=== PATIENT | female | born 1955 | race Caucasian/White ===

== ENCOUNTER 2017-09-21 20:17 | Emergency (ER) | payer BC ==
[~2017-09-21] VITALS: Ht 172.7 cm; Wt 85.7 kg
[~2017-09-21 20:17] MED LIST: LOVASTATIN20 MG PO; MOTRIN IB200 MG PO; NORCO 5-325 TA1 EACH PO
[2017-09-21] MEDS ORDERED: METFORMIN HCL500 MG PO (20:47)
[2017-09-21] MEDS ORDERED: TRAZODONE HCL50 MG PO (20:48)
[2017-09-21] MEDS ORDERED: TRAMADOL HCL50 MG PO (21:53)
[2017-09-21] MEDS ORDERED: PENICILLIN V P500 MG PO (21:53)
== END 2017-09-21 22:00 | disposition home or self-care (01) ==
LOC: ED 20:17
DX: K08.89 Other specified disorders of teeth and supporting structures (principal); E11.9 Type 2 diabetes mellitus without complications; E78.00 Pure hypercholesterolemia, unspecified; Z90.49 Acquired absence of other specified parts of digestive tract; Z79.84 Long term (current) use of oral hypoglycemic drugs; Z98.818 Other dental procedure status; Z88.5 Allergy status to narcotic agent; Z79.899 Other long term (current) drug therapy
CPT/HCPCS: 99283

== ENCOUNTER 2023-10-14 08:33 | Day surgery (SDC) | payer MEDICARE, OTHER ==
[~2023-10-14] VITALS: Ht 172.7 cm; Wt 87.7 kg
[~2023-10-14 08:33] MED LIST changes: +ALEVE220 MG PO; +ATIVAN0.5 MG PO; +LOVASTATIN40 MG PO; +METFORMIN HCL500 MG PO; +MOBIC15 MG PO; +PENICILLIN V P500 MG PO; +TRAMADOL HCL50 MG PO; +TRAZODONE HCL50 MG PO
[2023-10-14 09:00] VITALS: BP 126/61
--- NOTE | 2023-10-14 10:38 | NUR ---
10/14/23 Mary Jones 1030 PT TO PACU SLEEPING. O2 IN PLACE VIA NASAL CANNULA
[2023-10-14 11:28] VITALS: BP 149/83
--- NOTE | 2023-10-14 11:40 | OR ---
[facility] [address] [place], [place] [address] Signed DATE OF OPERATION: 10/14/2023 SURGEON: Alberto Shea MD PREOPERATIVE DIAGNOSES: 1. Rectal bleeding. 2. Internal and external hemorrhoids, greater than 40 years. 3. Diverticulosis. 4. Hyperplastic and adenomatous polyps. POSTOPERATIVE DIAGNOSES: 1. Ybbckyoj-vb-sdcri circumferential external hemorrhoids. 2. Moderate beefy internal hemorrhoids with associated skin tags. 3. No visible diverticulosis. PROCEDURE: Colonoscopy without biopsy. ESTIMATED BLOOD LOSS: None. INDICATIONS: Brigid is a 68-year-old obese diabetic female, asked to see me for followup colonoscopy. She has had chronic intermittent rectal bleeding associated with hemorrhoids for more than 40 years. She has history of anxiety and tells me that she always worried something worse is going on her colon. Really, she has no other lower GI complaints. There is no family history of colon cancer or polyps. She has good success with Anusol cream and fiber products. At one point, she was contemplating hemorrhoidectomy, but found out from friends it is very painful surgery. She said she is fine so long as there is no cancer. I helped her with the colonoscopy in 2007. She had internal and external hemorrhoids along with some small hyperplastic polyps. She came back in 2018, and she had mlczbmh-[id number] sigmoid diverticulosis, the moderate external hemorrhoids, minimal internal hemorrhoids and then several hyperplastic polyps. We took a biopsy from what looked like lymphoid tissue off the ileocecal valve. The pathologist felt it might be a tubular adenomatous polyp. Consequently, we did ask her to follow up in 5 years. In the office, I gave her a pamphlet on colonoscopy. She understands the nature of the test. There is risk including, but not limited to gas bloating, crampy abdominal pain, bleeding, perforation requiring surgery, and missed diagnosis. We also reviewed the written instructions for the bowel prep and she is very familiar with our instructions. She recalls the need for IV conscious sedation. She has always done well Electronically Signed By: ALBERTO SHEA MD 10/14/23 1140 PATIENT NAME: BRIGID SAMPSON OPERATIVE REPORT DATE OF : 53 REPORT #: [id number] PHYSICIAN: ALBERTO SHEA MD PCP: LESLIE PATTON MD REPORT IS CONFIDENTIAL AND NOT TO BE RELEASED WITHOUT AUTHORIZATION [facility] [address] [place] [id number] Signed with Versed and fentanyl despite her as needed use of lorazepam. DESCRIPTION OF PROCEDURE: Brigid was taken into our endoscopy suite and placed in the left lateral decubitus position. She was given IV sedation with 7 mg of Versed and 100 mcg of fentanyl. A digital rectal exam was performed and she does have rhzycdbe-db-uuwfe circumferential external hemorrhoids. She had good sphincter tone. There were no masses. I could feel an internal anal skin tag. The adult colonoscope was introduced and advanced around into the cecum under direct visualization of camera. It took just a little bit of abdominal compression with some additional sedation to get the camera right into the cecum itself. Her prep was good as always. I could easily see the appendiceal orifice and ileocecal valve. We looked at the ileocecal valve, were actually quite extensively. We did not see any lesions of concern. The scope was then slowly withdrawn. We took pictures throughout for photodocumentation. We did not specifically see diverticula on this occasion. There were no polyps. Once in the rectum, the scope was retroflexed. She does have moderate beefy internal hemorrhoids with associated skin tag. There is one hemorrhoid that is a little larger, I believe that is when it probably bleeds once in a while. She could always consider just an office based hemorrhoid banding if that becomes an issue. After this, the gas was suctioned out, colonoscope removed. Brigid tolerated the procedure quite well. RECOMMENDATIONS: Brigid can return in 5 years for repeat colonoscopy due to her history of adenomatous polyps. She does have one dominant internal hemorrhoid that may or may not be a minimal to office based banding if that becomes an issue with bleeding. Alberto Shea MD ALB/MODL /[id number] cc: Patient Chart MD Leslie Chisholm MD Electronically Signed By: ALBERTO SHEA MD 10/14/23 1140 PATIENT NAME: BRIGID SAMPSON OPERATIVE REPORT DATE OF : 53 REPORT #: [id number] PHYSICIAN: ALBERTO SHEA MD PCP: LESLIE PATTON MD REPORT IS CONFIDENTIAL AND NOT TO BE RELEASED WITHOUT AUTHORIZATION [address] [address] Signed Copies: ALBERTO SHEA MD, ROBERT D DMD ~ Electronically Signed By: ALBERTO SHEA MD 10/14/23 1140 PATIENT NAME: BRIGID SAMPSON OPERATIVE REPORT DATE OF : 53 REPORT #: [id number] PHYSICIAN: ALBERTO SHEA MD PCP: LESLIE PATTON MD REPORT IS CONFIDENTIAL AND NOT TO BE RELEASED WITHOUT AUTHORIZATION
== END 2023-10-14 11:35 | disposition home or self-care (01) ==
LOC: OPS 08:33 → DS 08:33 → OPS 11:35
PROVIDERS: ATTEND Colon & Rectal Surgery
PROC: 0DJD8ZZ Inspection of Lower Intestinal Tract, Via Natural or Artificial Opening Endoscopic (ICD-10-PCS; principal; 2023-10-14 09:45)
DX: K62.5 Hemorrhage of anus and rectum (principal); K64.8 Other hemorrhoids; K64.4 Residual hemorrhoidal skin tags; E66.9 Obesity, unspecified; E11.9 Type 2 diabetes mellitus without complications; E78.5 Hyperlipidemia, unspecified; M17.11 Unilateral primary osteoarthritis, right knee; M19.012 Primary osteoarthritis, left shoulder
CPT/HCPCS: J2250; J3010; J7121

== ENCOUNTER 2024-01-05 19:51 | Emergency (ER) | payer MEDICARE, OTHER ==
[~2024-01-05] VITALS: Ht 172.7 cm; Wt 86.6 kg
[2024-01-05 21:03] LABS: BASOPHILS 0.9 % (0-2); EOSINOPHILS 0.9 % (0-6); HEMATOCRIT 21.9 % (35.0-50.0); HEMOGLOBIN 6.6 g/dL (12.0-18.0); LYMPHOCYTES 28.5 % (24-44); MCH 17.3 (27-36); MCV 57.6 fl (81-99); MONOCYTES 10.6 % (0-12); NEUTROPHILS 59.1 % (39-80); PLATELET COUNT 297 K/uL (140-440); RBC 3.81 M/ul (4.3-5.7); RDW 18.4 (10.5-15.0)
[2024-01-05 21:19] LABS: INR 1.04 (0.80-1.30); PROTIME 12.9 Sec (11.2-14.2)
[2024-01-05 22:02] LABS: ABO O; ANTIBODY SCREEN NEGATIVE; RH POSITIVE
[2024-01-05 22:07] LABS: IS CROSSMATCH COMPATIBLE
[2024-01-05] MEDS ORDERED: VITAMIN C500 M5 PO (23:08)
[2024-01-05] MEDS ORDERED: IRON325 M1 PO (23:08)
--- NOTE | 2024-01-05 23:26 | EKG ---
[facility] [address] [facility] [place] [address] Signed Sinus rhythm with premature atrial complexes with aberrant conduction Low voltage QRS Borderline ECG No previous ECGs available Confirmed by Mainor Kaba MD () on 01/05/2024 11:26:51 PM Electronically Signed By: MAINOR KABA MD 01/05/24 2326 PATIENT NAME: LULÚ SAMPSON Electrocardiogram DATE OF : 53 PHYSICIAN: MAINOR KABA MD REPORT #: [id number] REPORT IS CONFIDENTIAL AND NOT TO BE RELEASED WITHOUT AUTHORIZATION
[2024-01-06 03:21] VITALS: BP 122/68
[2024-01-07 12:46] LABS: RBC, LEUKOREDUCED 18212402991800L; RBC, LEUKOREDUCED 18212402991900J
== END 2024-01-06 03:22 | disposition home or self-care (01) ==
LOC: ED 19:51
PROVIDERS: Family Medicine
DX: D64.9 Anemia, unspecified (principal); E11.9 Type 2 diabetes mellitus without complications; Z88.5 Allergy status to narcotic agent; Z79.84 Long term (current) use of oral hypoglycemic drugs; Z79.899 Other long term (current) drug therapy
CPT/HCPCS: 36415; 36430; 85025; 85060; 85610; 86850; 86900; 86901; 86922; 93005; 93010; 99285-25; P9016

== ENCOUNTER 2024-04-27 07:51 | Day surgery (SDC) | payer MEDICARE, OTHER ==
[~2024-04-27] VITALS: Ht 172.7 cm; Wt 86.3 kg
[~2024-04-27 07:51] MED LIST changes: +IBLOOD GLUCOSE TEST STRIP 1 EA TEST VI PRN; +IRON325 M1 PO; +LACTATED RINGER'S 1,000 ML IV SCH; +LIDOCAINE HCL 1% 5 ML SDV INJ ONE; +MIDAZOLAM HCL 5 MG/5 ML VIAL IV PRN; +VITAMIN C500 M5 PO; +fentaNYL citrate 100 MCG/2 ML VIAL IV PRN
[2024-04-27 08:06] VITALS: BP 150/84
[2024-04-27] MEDS ORDERED: LOSARTAN POTASS25 MG PO (08:09)
[2024-04-27] MEDS ORDERED: MIDAZOLAM HCL 5 MG/5 ML VIAL ONE (09:15)
[2024-04-27] MEDS ORDERED: fentaNYL citrate 100 MCG/2 ML VIAL ONE (09:16)
--- NOTE | 2024-04-27 10:29 | NUR ---
04/27/24 1029 Kim Castaneda 1001 PT ARRIVED IN PACU SLEEPY. 1015 AWAKENS TO VERBAL STIMULI, THEN FALLS BACK TO SLEEP. 1025 RESTING. REU.
[2024-04-27 10:35] VITALS: BP 132/69
--- NOTE | 2024-04-27 16:06 | OR ---
[facility] [address] [place], [place] [address] Signed DATE OF OPERATION: 04/27/2024 SURGEON: Alberto Shea MD PREOPERATIVE DIAGNOSIS: Recent onset anemia. POSTOPERATIVE DIAGNOSIS: GE junction at 36 cm. PROCEDURE: EGD with CLOtest and biopsies of the duodenum and antrum. ESTIMATED BLOOD LOSS: None. INDICATIONS: Brigid is a 69-year-old female, who recently developed significant dyspnea on exertion. She ended up in the emergency room. She was found to have severe anemia with a hemoglobin of 6.6 and a mean cell volume of 56. She received 2 units of packed red blood cells and was placed on omeprazole. She said she is feeling much better. She has not had any followup blood work. I actually helped her with a colonoscopy in 2007 at the age of 53. She told me she has had her hemorrhoids for over 40 years. She does bleed intermittently from the hemorrhoids. She also had hyperplastic polyps. She came back in 2017 at the age of 63. Again, she had some intermittent rectal bleeding. She had three small hyperplastic polyps and one tubular adenomatous polyp removed. We thought she had just a little bit of diverticulosis. We then had her back in October of 2023 and again she has some intermittent rectal bleeding associated with the hemorrhoids but we did not see any diverticula on this occasion. She did well with Versed and fentanyl at that time. Because of the anemia, her primary care provider asked her to come back to the office and undergo upper endoscopy. She has no upper or lower GI complaints. She has not described any black tarry stool, hematemesis or coffee-ground emesis. I gave her a pamphlet on upper endoscopy and we reviewed that together. She understands there is risk including, but not limited to gas bloating, crampy abdominal pain, bleeding, perforation requiring surgery, and missed diagnosis. She also understands the need for IV conscious sedation. She understands that an adult person has to take her home afterwards. She had expressed understanding and wished to proceed. PROCEDURE IN DETAIL: Electronically Signed By: ALBERTO SHEA MD 04/27/24 1606 PATIENT NAME: BRIGID SAMPSON OPERATIVE REPORT DATE OF : 53 REPORT #: [id number] PHYSICIAN: ALBERTO SHEA MD PCP: LESLIE PATTON MD REPORT IS CONFIDENTIAL AND NOT TO BE RELEASED WITHOUT AUTHORIZATION [facility] [address] [place], [place] [address] Signed Brigid was taken into our endoscopy suite and placed in the supine semi-recumbent position. She was given 4 mg of Versed and 100 mcg of fentanyl to cover the case. The posterior oropharynx was anesthetized with lidocaine spray. A bite block was utilized for the case. The adult gastroscope was introduced and advanced under direct visualization of the camera out into the duodenum. Her duodenum and pyloric channel were completely unremarkable. We went ahead and took a biopsy of the duodenum because of the recent onset of anemia. We also took an additional biopsy of the antrum for CLOtest as well as pathologic review. She had very little mild areas of inflammation diffusely in the stomach. They are quite minimal. Upon retroflexion of the scope, there was no hiatal hernia. The scope was withdrawn up through the area of the GE junction, which was compliant without stricture. There were no gastric or esophageal varices. She has minimal disruption to the Z-line. The Z-line measured out about 36 cm. There was no distal esophagitis. The middle and upper esophagus were unremarkable. After this, the gas was suctioned out and the gastroscope removed. Brigid tolerated the procedure quite well. RECOMMENDATIONS: I will see Brigid back in my office in 7 to 14 days to review her results. Alberto Shea MD ALB/MODL /[id number] cc: MD Alberto Andrews MD Copies: LESLIE PATTON DMD, ANDREW L MD ~ Electronically Signed By: ALBERTO SHEA MD 04/27/24 1606 PATIENT NAME: BRIGID SAMPSON OPERATIVE REPORT DATE OF : 53 REPORT #: [id number] PHYSICIAN: ALBERTO SHEA MD PCP: LESLIE PATTON MD REPORT IS CONFIDENTIAL AND NOT TO BE RELEASED WITHOUT AUTHORIZATION
--- NOTE | 2024-04-30 12:46 | PATH ---
[facility] [address] [place], [place] [address] Signed SPECIMEN(S): A DUODENAL BIOPSY SPECIMEN(S): B ANTRUM BIOPSY SPECIMEN SOURCE: A. DUODENAL BIOPSY B. ANTRUM BIOPSY CLINICAL HISTORY: Anemia. FINAL PATHOLOGIC DIAGNOSIS: A. Duodenum, biopsy: - Small bowel mucosa with no significant pathologic changes B. Stomach, antrum, biopsy: - Gastric antral mucosa with no significant pathologic changes - Negative for Helicobacter pylori with HE stains BRP MICROSCOPIC EXAMINATION: Histologic sections of all submitted blocks are examined by light microscopy. These findings, together with the gross examination, support the pathologic diagnosis. GROSS DESCRIPTION: A. The specimen, labeled and designated "Celso, duodenum biopsy," is received in formalin and consists of one villegas soft tissue fragment, 0.2 cm. Entirely submitted in (A1). B. The specimen, labeled and designated "Chambers, antrum biopsy," is received in formalin and consists of one villegas soft tissue fragment, 0.2 cm. Entirely submitted in (B1). JS (under the direct supervision of a pathologist) The Gross Description was prepared using a voice recognition system. The report was reviewed for accuracy; however, sound-alike word errors, addition and/or deletions may occur. If there is any question about this report, please contact Client Services. ADDITIONAL NOTES: Immunohistochemical and/or in situ hybridization studies if performed in this case included appropriate positive controls that reacted as expected. This test was developed and its performance characteristics determined by [facility]. It has not been cleared or PATIENT NAME: LULÚ SAMPSON RECORD #: [id number] PATHOLOGY DATE OF : 53 REPORT #: [id number] PHYSICIAN: ANA BUCIO PCP: LESLIE PATTON MD REPORT IS CONFIDENTIAL AND NOT TO BE RELEASED WITHOUT AUTHORIZATION [facility] [address] [place], [place] [address] Signed approved by the U.S. Food and Drug Administration. The FDA has determined that such clearance or approval is not necessary. This test is used for clinical purposes. It should not be regarded as investigational or for research. [facility] is certified under the Clinical Laboratory Improvement Amendments of 1988 (CLIA) as qualified to perform high complexity clinical laboratory testing. PERFORMING LABORATORY: Technical component was performed by [facility], [address] [place] [id number] (CLIA# [id number]). Professional [facility], [address] [address] (CLIA# [id number]). Diagnostician: Hans Figueroa MD Pathologist Electronically Signed 04/30/2024 Copies: ~ PATIENT NAME: LULÚ SAMPSON PATHOLOGY DATE OF : 53 REPORT #: [id number] PHYSICIAN: ANA BUCIO PCP: LESLIE PATTON MD REPORT IS CONFIDENTIAL AND NOT TO BE RELEASED WITHOUT AUTHORIZATION
== END 2024-04-27 10:46 | disposition home or self-care (01) ==
LOC: DS 07:51
PROVIDERS: ATTEND Colon & Rectal Surgery
PROC: 0DB68ZX Excision of Stomach, Via Natural or Artificial Opening Endoscopic, Diagnostic (ICD-10-PCS; 2024-04-27)
PROC: 0DB98ZX Excision of Duodenum, Via Natural or Artificial Opening Endoscopic, Diagnostic (ICD-10-PCS; principal; 2024-04-27 09:20)
DX: D50.9 Iron deficiency anemia, unspecified (principal); K92.89 Other specified diseases of the digestive system; K64.0 First degree hemorrhoids; K64.4 Residual hemorrhoidal skin tags; I10 Essential (primary) hypertension; E11.9 Type 2 diabetes mellitus without complications; Z79.84 Long term (current) use of oral hypoglycemic drugs; Z79.899 Other long term (current) drug therapy; Z88.5 Allergy status to narcotic agent
CPT/HCPCS: 36415; 87077; 88305; 99153; G0500; J2250; J3010; J7121

== ENCOUNTER 2024-06-03 13:29 | Emergency (ER) | payer MEDICARE, OTHER ==
[~2024-06-03] VITALS: Ht 172.7 cm; Wt 85.6 kg
[~2024-06-03 13:29] MED LIST changes: -IBLOOD GLUCOSE TEST STRIP 1 EA TEST VI PRN; -LACTATED RINGER'S 1,000 ML IV SCH; -LIDOCAINE HCL 1% 5 ML SDV INJ ONE; +LOSARTAN POTASS25 MG PO; -MIDAZOLAM HCL 5 MG/5 ML VIAL IV PRN; -fentaNYL citrate 100 MCG/2 ML VIAL IV PRN
[2024-06-03] MEDS ORDERED: OMEPRAZOLE20 MG PO (13:53)
[2024-06-03] MEDS ORDERED: MULTI VITAMIN1 EACH PO (13:54)
[2024-06-03 14:23] LABS: BILIRUBIN, URINE NEGATIVE (negative); BLOOD/HGB, URINE TRACE-I (Negative); KETONE, URINE NEGATIVE (Negative); LEUK ESTERASE, URINE NEGATIVE (negative); NITRITE, URINE NEGATIVE (negative)
[2024-06-03 14:24] LABS: BASOPHILS 0.8 % (0-2); HEMATOCRIT 28.8 % (35.0-50.0); HEMOGLOBIN 9.4 g/dL (12.0-18.0); LYMPHOCYTES 27.8 % (24-44); MCH 25.8 (27-36); MCHC 32.8 g/dl (30-36); MCV 78.6 fl (81-99); MONOCYTES 10.3 % (0-12); NEUTROPHILS 60.1 % (39-80); PLATELET COUNT 338 K/uL (140-440); RBC 3.66 M/ul (4.3-5.7); RDW 13.8 (10.5-15.0)
[2024-06-03 14:31] LABS: BACTERIA, URINE NONE SEEN /hpf (negative); CASTS, URINE NONE SEEN \\lpf; COLLECTION TYPE, URINE CLEAN CATCH; CRYSTALS, URINE NONE SEEN (0-1+); EPITHELIAL CELLS, URINE SQUAMOUS 2+ /lpf (0-1+); REFLEX CULTURE, URINE No (No); WHITE BLOOD CELLS, URINE 0-1 /HPF (0-5)
[2024-06-03 14:42] LABS: ALBUMIN 3.6 g/dL (3.4-5.0); ALBUMIN/GLOBULIN RATIO 1.16 (1.1-2.4); ANION GAP 14.8 (7-21); BILIRUBIN, TOTAL 0.3 ng/dL (0.2-1.0); BUN/CREATININE RATIO 11.88 (6.0-28.6); CALCIUM 8.8 mg/dL (8.5-10.1); CREATININE, SERUM 1.01 mg/dL (0.55-1.02); POTASSIUM 3.8 mmol/L (3.5-5.1); PROTEIN, TOTAL 6.7 g/dL (6.4-8.2)
[2024-06-03 15:18] LABS: ABO O
[2024-06-03 15:19] LABS: ANTIBODY SCREEN NEGATIVE; RH POSITIVE
[2024-06-03 17:30] VITALS: BP 127/66
--- NOTE | 2024-06-03 21:59 | EKG ---
[facility] [address] [place] [address] Signed Normal sinus rhythm Minimal voltage criteria for LVH, may be normal variant ( R in aVL ) Possible Inferior infarct , age undetermined Abnormal ECG When compared with ECG of 05-JAN-2024 20:45, aberrant conduction is no longer present Borderline criteria for Inferior infarct are now present Confirmed by Mainor Kaba MD () on 06/03/2024 9:58:59 PM Electronically Signed By: MAINOR KABA MD 06/03/24 2159 PATIENT NAME: LULÚ SAMPSON Electrocardiogram DATE OF : 53 PHYSICIAN: MAINOR KABA MD REPORT #: [id number] REPORT IS CONFIDENTIAL AND NOT TO BE RELEASED WITHOUT AUTHORIZATION
== END 2024-06-03 17:30 | disposition home or self-care (01) ==
LOC: ED 13:29
PROVIDERS: Emergency Medicine
DX: R53.1 Weakness (principal); E11.9 Type 2 diabetes mellitus without complications; E78.00 Pure hypercholesterolemia, unspecified; Z79.84 Long term (current) use of oral hypoglycemic drugs; Z79.899 Other long term (current) drug therapy; Z88.5 Allergy status to narcotic agent
CPT/HCPCS: 36415; 71045; 80053; 81001; 83605; 83880; 85025; 85379; 86850; 86900; 86901; 93005; 93010; 99285-25